=== PATIENT | female | born 1995 | race African-American/Black ===

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

== ENCOUNTER 2018-02-25 20:51 | Emergency (ER) | payer OTHER ==
--- NOTE | 2018-02-25 21:00 | PDOC ---
Rapid Medical Evaluation Time Seen by Provider: 02/25/18 20:57 Medical Evaluation: Allergies Allergy/AdvReac Type Severity Reaction Status Date / Time Sulfa (Sulfonamide Allergy Intermediate PIGMENT Verified 10/04/16 21:51 Antibiotics) CHANGES. 02/25/18 20:58 The patient presents with a chief complaint of: lower abd cramping w/ intermittent vag bleeding x 2 days, had menses 1 week ago I have performed a brief in-person evaluation of this patient; Pertinent physical exam findings: vss, mid suprapubic tenderness I have ordered the following: ua, hcg, cbc, u cx The patient will proceed to the ED for further evaluation. Discharge Disposition - Diagnosis Vagina bleeding - Referrals Referrals: Mc Calderon MD [Primary Care Provider] - - Patient Instructions - Post Discharge Activity
[2018-02-25 21:04] VITALS: BP 129/82; PULSE 87; TEMP 97.9; BMI 23.5
[2018-02-25 21:20] LABS: BASO % 0.4 % (0-2.0); EOS % 1.7 % (0-4.5); HEMATOCRIT 40.2 % (32.4-45.2); HEMOGLOBIN 13.8 GM/dL (10.7-15.3); LYMPH % 57.5 % (8-40); MCH 30.7 pg (25.7-33.7); MCHC 34.5 g/dl (32.0-36.0); MEAN CELL VOLUME 89.1 fl (80-96); MEAN PLT VOLUME 7.8 fl (7.5-11.1); MONO % 7.6 % (3.8-10.2); NEUT % 32.8 % (42.8-82.8); PLATELET COUNT 277 K/MM3 (134-434); RBC 4.51 M/mm3 (3.60-5.2); RDW 12.5 % (11.6-15.6); WHITE BLOOD COUNT 6.1 K/mm3 (4.0-10.0)
--- NOTE | 2018-02-25 21:33 | PDOC ---
Attending Attestation - Resident Resident Name: Elyssa Kimball - ED Attending Attestation I have performed the following: I have examined & evaluated the patient, The case was reviewed & discussed with the resident, I agree w/resident's findings & plan - Medical Decision Making 02/25/18 22:36 Pt states that she has hematuria vs vag bleeding vs blood in her stool. She saw blood in the toilet bowl and when she wiped. She has minimal discomfort with urination. She states that she is on a new control "Lutera" Pt has normal labs and normal exam. She has hematuria. She has no blood in her stool. She has no UTI. Pt has ketones in her urine, and she admits that she often doesn't eat because she doesn't feel hungry and that she doesn't drink a lot of fluid. Pt was encouraged to eat and drink more. 02/25/18 22:39 Pt is not . She will follow with her RAILROAD SHOP INSPECTOR. Pt is stable for discharge 02/25/18 22:40 Pt came to the ER likely because her maternal aunt just after a jones with endometrial cancer. Pt and mom are anxious. <Leslie Henderson - Last Filed: 02/25/18 22:40> - HPI HPI: 02/25/18 23:08 The patient is a 22 year old female , with no significant PMH, who presents to the emergency department with vaginal bleeding and abdominal cramps that began last night . The patient states she saw drops of blood in her stool and urine today with associated symptoms of dysuria and constipation. She reports her last menstrual period ended 3 days ago and had an 3 months ago. She is currently on control. The patient denies discharge, itching, and odor denies chest pain, shortness of breath, headache and dizziness.Denies fever, chills, nausea, vomit, diarrhea. Denies dysuria, frequency, urgency and hematuria. Allergies: NKA Past surgical history: Social history: No reported PCP: None reported Documentation prepared by Reed Tang, acting as medical case manager for Leslie Henderson MD. - Physicial Exam PE: 02/25/18 23:09 GENERAL: The patient is in no acute distress. LUNGS: Breath sounds equal, clear to auscultation bilaterally. No wheezes, and no crackles. HEART:Regular rate and rhythm, normal S1 and S2 without murmur, rub or gallop. ABDOMEN: Soft, nontender, normoactive bowel sounds. No guarding, no rebound. No masses palpable. EXTREMITIES: Normal range of motion, no edema. No clubbing or cyanosis. No erythema, or tenderness. NEUROLOGICAL: Cranial nerves II through XII grossly intact. Normal speech. No focal neurological deficits. MUSCULOSKELETAL: Back non-tender to palpation, no CVA tenderness SKIN: Warm, Dry, normal turgor, no rashes or lesions noted. <Reed Tang - Last Filed: 02/25/18 23:09>
[2018-02-25 21:48] LABS: ALK PHOS 48 U/L (45-117); ANION GAP 6 MMOL/L (8-16); BILIRUBIN,TOTAL 0.5 mg/dL (0.2-1); BLOOD UREA NITROGEN 9 mg/dL (7-18); CALCIUM 8.9 mg/dL (8.5-10.1); CHLORIDE 108 mmol/L (98-107); CO2 25 mmol/L (21-32); CREATININE 0.8 mg/dL (0.55-1.3); GLUCOSE,RANDOM 78 mg/dL (74-106); POTASSIUM 3.5 mmol/L (3.5-5.1); SGOT/AST 17 U/L (15-37); SGPT/ALT 21 U/L (13-61); SODIUM 139 mmol/L (136-145); TOT PROT 7.4 g/dl (6.4-8.2)
[2018-02-25 22:03] LABS: URINE APPEARANCE SLCLOUDY; URINE BILIRUBIN NEGATIVE (<2.0 mg/dL); URINE COLOR YELLOW; URINE GLUCOSE (UA) NEGATIVE (NEGATIVE); URINE KETONE 2+ (NEGATIVE); URINE LEUK ESTERASE NEGATIVE (NEGATIVE); URINE NITRITE NEGATIVE (NEGATIVE); URINE PROTEIN 2+ (NEGATIVE); URINE UROBILINOGEN 4.0 E.U/dl mg/dL (0.2-1.0)
[2018-02-25 22:05] LABS: HCG,QUALITATIVE URINE Negative
[2018-02-25 22:19] LABS: EPI CELLS RARE /HPF (FEW); URINE BACTERIA RARE /hpf (NONE SEEN); URINE MUCUS MODERATE
--- NOTE | 2018-02-25 22:28 | PDOC ---
History of Present Illness - General Chief Complaint: Hematuria Stated Complaint: BLOOD IN URINE, CRAMPING Time Seen by Provider: 02/25/18 20:57 History Source: Patient Exam Limitations: No Limitations Past History - Past Medical History Allergies/Adverse Reactions: Allergies Allergy/AdvReac Type Severity Reaction Status Date / Time Sulfa (Sulfonamide Allergy Intermediate PIGMENT Verified 02/25/18 21:05 Antibiotics) CHANGES. Home Medications: Ambulatory Orders No Home Medications 0 dose .ROUTE UTDICT 04/19/12 COPD: No - Immunization History Immunization Up to Date: Yes - Suicide/Smoking/Psychosocial Hx Smoking Status: No Smoking History: Never smoked Have you smoked in the past 12 months: No Number of Cigarettes Smoked Daily: 0 Information on smoking cessation initiated: No Hx Alcohol Use: No Drug/Substance Use Hx: No *Physical Exam - Vital Signs Last Vital Signs Temp Pulse Resp BP Pulse Ox 97.9 F 87 18 129/82 100 02/25/18 20:58 02/25/18 20:58 02/25/18 20:58 02/25/18 20:58 02/25/18 20:58 Moderate Sedation - Procedure Monitoring Vital Signs: Procedure Monitoring Vital Signs Temperature 97.9 F 02/25/18 20:58 Pulse Rate 87 02/25/18 20:58 Respiratory Rate 18 02/25/18 20:58 Blood Pressure 129/82 02/25/18 20:58 O2 Sat by Pulse Oximetry (%) 100 02/25/18 20:58 ED Treatment Course - LABORATORY CBC & Chemistry Diagram: 02/25/18 21:05 02/25/18 21:05 - ADDITIONAL ORDERS Additional order review: Laboratory Results 02/25/18 02/25/18 02/25/18 22:11 21:48 21:05 Sodium 139 Potassium 3.5 Chloride 108 H Carbon Dioxide 25 Anion Gap 6 L BUN 9 Creatinine 0.8 Creat Clearance w eGFR > 60 Random Glucose 78 Calcium 8.9 Total Bilirubin 0.5 AST 17 ALT 21 Alkaline Phosphatase 48 Total Protein 7.4 Albumin 4.0 Urine Color Yellow Urine Appearance Slcloudy Urine pH 6.0 Ur Specific [place] 1.026 Urine Protein 2+ H Urine Glucose (UA) Negative Urine Ketones 2+ H Urine Blood 3+ H Urine Nitrite Negative Urine Bilirubin Negative Urine Urobilinogen 4.0 e.u/dl H Ur Leukocyte Esterase Negative Urine WBC (Auto) 9 Urine RBC (Auto) 576 Ur Epithelial Cells Rare Urine Bacteria Rare Urine Mucus Moderate Urine HCG, Qual Negative Stool Occult Blood Negative 02/25/18 21:05 RBC 4.51 MCV 89.1 MCHC 34.5 RDW 12.5 MPV 7.8 Neutrophils % 32.8 L D Lymphocytes % 57.5 H D Monocytes % 7.6 Eosinophils % 1.7 Basophils % 0.4 Medical Decision Making - Medical Decision Making Pt was seen at bedside, also will be seen by attending Dr. Henderson. Pt presenting with complaints of vaginal bleeding and blood mixed into the urine and stool for the PE showed [] Considering [vs vs] Ordered work-up including [labs] and [imaging]. Provided [interventions/meds] for improvement of [pain/symptom control]. Will continue to reassess pt and monitor for symptomatic improvement. 02/25/18 22:21 Urine +blood, but negative leuk esterase, rare bacteria, likely from vaginal bleeding. 02/25/18 22:28 *DC/Admit/Observation/Transfer Diagnosis at time of Disposition: Vaginal bleeding - Discharge Dispostion Disposition: HOME Condition at time of disposition: Good Decision to Admit order: No - Referrals Referrals: Mc Calderon MD [Primary Care Provider] - Ton Vargas MD [Staff Physician] - - Patient Instructions Printed Discharge Instructions: DI for Vaginal Bleeding Additional Instructions: You were seen in the ER today for vaginal bleeding. The results of your labs and imaging today showed no infection and that you are not . Please follow-up with your primary care doctor and ob-international marketing coordinator doctor within 1-2 days to discuss your visit and make sure your symptoms have improved. Please return to the ER if you have any worsening pain, worsening vaginal bleeding (soaking through 1-2 heavy pads per hour), development of fevers or chills, loss of consciousness, inability to tolerate food or fluids, or any other concerns. - Post Discharge Activity
== END 2018-02-25 22:45 | disposition home or self-care (01) ==
LOC: JER 20:51
DX: N93.8 Other specified abnormal uterine and vaginal bleeding (principal)
CPT/HCPCS: 36415; 80053; 81003; 81015; 82272; 84703; 85025; 87086; 99282-25

== ENCOUNTER 2019-12-05 05:03 | Day surgery (SDC) | payer OTHER ==
[2019-12-04 12:00] VITALS: BMI 31.8
--- OUTSIDE RECORDS SUMMARY | 2019-12-05 05:07 | XMS ---
:1995 Author Organization [facility] Support Name Relationship Address Phone GRETA, STUDENT Unavailable Unavailable Unavailable GRETA Unavailable Unavailable Unavailable DEVEN STACY MOTHER [address] [phone] [place] [address] Rachelle Mendez Unavailable 7 [facility] [place] [address] Re-disclosure Warning The records that you are about to access may contain information from federally- assisted alcohol or drug abuse programs. If such information is present, then the following federally mandated warning applies: This information has been disclosed to you from records protected by federal confidentiality rules (42 CFR part 2). The federal rules prohibit you from making any further disclosure of this information unless further disclosure is expressly permitted by the written consent of the person to whom it pertains or as otherwise permitted by 42 CFR part 2. A general authorization for the release of medical or other information is NOT sufficient for this purpose. The Federal rules restrict any use of the information to criminally investigate or prosecute any alcohol or drug abuse patient.The records that you are about to access may contain highly sensitive health information, the redisclosure of which is protected by Article 27-F of the [facility] Public Health law. If you continue you may haveaccess to information: Regarding HIV / AIDS; Provided by facilities licensed or operated by the [facility] Office of Mental Health; or Provided by the [facility] Office for People With Developmental Disabilities. If such information is present, then the following [facility] mandated warning applies: This information has been disclosed to you from confidential records which are protected by state law. State law prohibits you from making any further disclosure of this information without the specific written consent of the person to whom it pertains, or as otherwise permitted by law. Any unauthorized further disclosure in violation of state law may result in a fine or fdc sentence or both. A general authorization for the release of medical or other information is NOT sufficient authorization for further disclosure. Allergies and Adverse Reactions Type Description Substance Reaction Status Data Source(s ) sulfur sulfur sulfur Unknown Active eCW2 ([facility]) sulfur sulfur sulfur Unknown Active eCW2 ([facility]) sulfur sulfur sulfur Unknown Active eCW2 ([facility]) Drug allergy Sulfur Drug allergy rash Active eCW3 ([facility]) Encounters Encounter Providers Location Date Indications Data Source(s ) (EOB) Established [facility] 01/03/2019 eCW 3 ([facility] A28 12:00:00 AM [facility]) 01/03/2019 12:00:00 AM EDT Outpatient [facility] 11/22/2018 eCW3 ([facility] 12:00:00 [facility]) 11/22/2018 12:00:00 AM EDT Outpatient [facility] 11/15/2018 eCW3 ([facility] 12:00:00 AM [facility]) 11/15/2018 12:00:00 AM EDT Outpatient [facility] 11/11/2018 eCW3 ([facility] 12:00:00 AM [facility]) 11/11/2018 12:00:00 AM EDT Outpatient [facility] 11/08/2018 eCW3 ([facility] 12:00:00 [facility]) 11/08/2018 12:00:00 AM EDT [facility] 11[facility]04[facility] ( [facility] [place] [facility] 12:00:00 AM [facility] EDT [facility]) [facility] 12/13/2017 eCW2 ( [facility] [place] [facility] 12:00:00 AM [facility] - [place] EDT [facility]) [facility] 12/11/2017 eCW2 ( [facility] [place] [facility] 12:00:00 AM Pa[facility] - [place] EDT [facility]) [facility] 12/02/2017 eCW2 ( [facility] [place] [facility] 12:00:00 AM Pa[facility] - [place] EDT [facility]) [facility] 12/01/2017 eCW2 ( [facility] [place] [facility] 12:00:00 AM Pa[facility] - [place] EDT [facility]) [facility] 10/20/2017 eCW2 ( [facility] [place] [facility] 12:00:00 AM Pa[facility] - [place] EDT [facility]) [facility] 07/08/2017 eCW2 ( [facility] [place] [facility] 12:00:00 AM Paren [facility] - [place] EDT [facility]) [facility] 06/10/2017 eCW2 ( [facility] [place] [facility] 12:00:00 AM Pa[facility] - [place] EDT [facility]) [facility] 12/20/2014 eCW2 ( [facility] [place] [facility] 12:00:00 AM Parenth ood - [place] EDT [facility]) Immunizations Vaccine Date Status Description Data Source(s) Azithromycin 500mg #1 12/11/2017 completed eCW2 ( [facility] (Non 340B) 02:17:00 PM EDT [facility]) No Known Immunizations completed eCW2 ([facility]) No Known Immunizations completed eCW2 ([facility]) Medications Medication Brand Start Product Dose Route Administrative Pharm[facility] Indications Reaction Description Data Name Date Form Instructions Instructions Source(s) 2 ML Ketoro 12/11/ active 0.5 ml one eCW 2 Ketorolac lac 2018 time (Planned Tromethamin Tromet 12:00: Pare nthood e 30 MG/ML hamine 00 AM - [facility] Cart[facility] 60 EDT [facility] Ketorolac MG/2ML Incorpor at Tromethamin ed) e 60 MG/2ML Lutera Lutera 12/11/ active 1 tablet eCW 2 0.1-20 0.1-20 2017 ([facility]anned MG-MCG MG-MCG 12:00: Parenthoo d 00 AM - [facility] EDT [facility]) Cyred Cyred 12/11/ active 1 tablet eCW2 0.15-30 0.15-3 2017 ([facility]anned MG-MCG 0 12:00: Parenthood MG-MCG 00 AM - [facility] EDT [facility]) Naproxen Napros 12/11/ active 1 tablet e CW2 500 MG Oral yn 500 2018 once (Plann ed Tablet MG 12:00: Parenthood [Naprosyn] 00 AM - [facility] Naprosyn EDT [facility] 500 MG Incorporat ed) Ondansetron Ondans 12/11/ active as dire cted eCW2 HCl 4 etron 2017 ([facility]anned MG/2ML HCl 4 12:00: Parenthood MG/2ML 00 AM - [facility] EDT [facility]) Microgestin Microg 12/20/ suspend 1 tabl et eCW2 FE 1.08/04 estin 2014 ed ([facility]anned 1.5-30 FE 12:00: Parenthood MG-MCG 1.530 00 AM - [facility] 1.5-30 EDT [facility] MG-MCG Incorporat ed) Microgestin Microg 12/20/ active 1 table t eCW2 FE .08/04 estin 2014 ([facility]anned 1.5-30 FE 12:00: [facility] MG-MCG 1.530 00 AM - [facility] 1.5-30 EDT [facility] MG-MCG Incorporat ed) Microgestin Microg 12/20/ suspend 1 tabl et eCW2 FE .08/04 estin 2014 ed ([facility]anned 1.5-30 FE 12:00: Parenthood MG-MCG 1.530 00 AM - [facility] 1.5-30 EDT [facility] MG-MCG Incorporat ed) Ibuprofen Ibupro active 1 tablet eC W2 800 MG Oral fen (Planned Tablet 800 MG [facility]) Iron UNK active Iron eCW3 (Ferrous (Ferrous ([facility] Sulfate) Sulfate) [facility]) Mifepriston Mifepr suspend 1 tablet eCW2 e 200 MG istone ed (Planned Oral Tablet 200 MG Parent meridian - [facility] [place] [facility]) UNK active eCW3 Vitamins Vitamins ([facility]) Azithromyci Azithr active 1 Tablet eCW2 n 500 MG omycin (Planned Oral Tablet 500 MG Parent [facility] - [facility] [place] [facility]) Misoprostol UNK suspend 4 tablets eCW2 4 tabs 200 ed (Planned MCG [facility]) UNK active eCW3 Vitamins Vitamins ([facility]) Lutera Lutera suspend 1 tablet eCW2 0.1-20 0.1-20 ed (Planned MG-MCG MG-MCG [facility]) UNK active eCW3 Vitamins Vitamins ([facility]) Lutera Lutera suspend 1 tablet eCW2 0.1-20 0.1-20 ed (Planned MG-MCG MG-MCG [facility] [place] [facility]) Azithromyci Azithr suspend as direc sandra eCW2 n 500 MG omycin ed ([facility]anned Oral Tablet 500 [facility] Azithromyci Azithr suspend as direc sandra eCW2 n 500 MG omycin ed (Planned 500 MG [facility] [place] [facility]) Misoprostol UNK active 4 tablets e CW2 4 tabs 200 (Planned MCG [facility] [place] [facility]) Iron UNK active Iron eCW3 (Ferrous (Ferrous ([facility] Sulfate) Sulfate) [facility]) Iron UNK active Iron eCW3 (Ferrous (Ferrous ([facility] Sulfate) Sulfate) [facility]) Azithromyci Azithr active as direct ed eCW2 n 500 MG omycin (Planned Oral Tablet 500 MG [facility] Iron UNK active Iron eCW3 (Ferrous (Ferrous ([facility] Sulfate) Sulfate) [facility]) Misoprostol UNK suspend 4 tablets eCW2 4 tabs 200 ed (Planned MCG [facility]) Ondansetron Zofran suspend 1 tablet s eCW2 4 MG Oral 4 MG ed (Planned Tablet Parenthood [Zofran] - [place] Zofran 4 MG [facility]) Mifepriston UNK active 1 tablet eC W2 e 200 MG ([facility] [place] [facility]) Lutera Lutera active 1 tablet eCW2 0.1-20 0.1-20 (Planned MG-MCG MG-MCG [facility] - [facility] [place] [facility]) Ondansetron Zofran active 1 tablets eCW2 4 MG Oral 4 MG (Planned Tablet [facility] [Zofran] - [facility] Zofran 4 MG [facility]) Ondansetron Zofran suspend 1 tablet s eCW2 4 MG Oral 4 MG ed (Planned Tablet Parenthood [Zofran] - [facility] Zofran 4 MG [facility]) Cyred Cyred active 1 tablet eCW2 0.15-30 0.15-3 (Planned MG-MCG 0 Parenthood MG-MCG - [facility]) UNK active eCW3 Vitamins Vitamins ([facility]) Ibuprofen Ibupro suspend 1 tablet e CW2 800 MG Oral fen ed (Planned Tablet 800 MG [facility]) Lutera Lutera active 1 tablet eCW2 0.1-20 0.1-20 (Planned MG-MCG MG-MCG [facility]) Cyred Cyred suspend 1 tablet eCW2 0.15-30 0.15-3 ed (Planned MG-MCG 0 Parenthood MG-MCG - [facility]) Cyred Cyred active 1 tablet eCW2 0.15-30 0.15-3 (Planned MG-MCG 0 Parenthood MG-MCG - [facility]) UNK active eCW3 Vitamins Vitamins ([facility]) Cyred Cyred suspend 1 tablet eCW2 0.15-30 0.15-3 ed (Planned MG-MCG 0 Parenthood MG-MCG - [facility]) Ibuprofen Ibupro suspend 1 tablet e CW2 800 MG Oral fen ed (Planned Tablet 800 MG [facility]) Mifepriston UNK suspend 1 tablet e CW2 e 200 MG ed ([facility]) Iron UNK active Iron eCW3 (Ferrous (Ferrous ([facility] Sulfate) Sulfate) [facility]) Insurance Providers Payer name Policy type Policy ID Covered Covered alliance party's Policy P robin / Coverage alliance party ID relationship to M[employer]za Inf ormation type mendoza [facility] [id number] HEALTH NON CAP Problems, Conditions, and Diagnoses Code Display Name Description Problem Type Effective Dates Data Source(s) Unknown Problems Unknown Problems Problem eC W2 ([facility]) Unknown Problems Unknown Problems Problem eC W2 ([facility]) Unknown Problems Unknown Problems Problem eC W2 ([facility]) Surgeries/Procedures Procedure Description Date Indications Data Source(s) Test 11/04/2018 eCW2 ([facility] 12:00:00 AM EDT [facility]) Surgical 12/11/2017 eCW2 (Plan isidoro 16-17.6 weeks 12:00:00 AM EDT [facility]) Cyred (NON 340B) 12/11/2017 eCW2 ([facility] ed 12:00:00 AM EDT [facility]) GONORRHEA, CADE 12/11/2017 eCW2 ([facility]anned 12:00:00 AM EDT [facility]) CHLAMYDIA, CADE 12/11/2017 eCW2 ([facility]anned 12:00:00 AM EDT [facility]) Prescription drug, oral, 12/11/2017 eCW 2 (Planned non chemotherapeutic, 12:00:00 AM EDT Par enthood - [facility] nos [facility]) HEMOGLOBIN 12/11/2017 eCW2 (Planned 12:00:00 AM EDT [facility]) CHLAMYDIA, CADE 12/01/2017 eCW2 ([facility]anned 12:00:00 AM EDT [facility]) HEMOGLOBIN 12/01/2017 eCW2 (Planned 12:00:00 AM EDT [facility]) GONORRHEA, CADE 12/01/2017 eCW2 (Planned 12:00:00 AM EDT [facility]) Test 12/01/2017 eCW2 ([facility]anned 12:00:00 AM EDT [facility]) US transvaginal, 12/01/2017 eCW2 (Plann ed uterus 12:00:00 AM EDT Pa[facility] d - [facility]) Results ID Date Data Source [id number] 12/01/2019 12:50:00 PM EDT [facility] Name Value Range Interpretation Description Data Sup porting Code Source(s) Document(s ) SARS [facility] coronavirus 2 RNA This lab was ordered by [facility] and reported by [facility]. ID Date Data Source [id number] 10/09/2019 12:00:00 AM EDT [facility] Name Value Range Interpretation Code Description Data Kelsi rce(s) Supporting Document(s ) 2018-nCoV [facility] RNA XXX CADE+probe- Imp This lab was ordered by [facility] [employer] and reported by [employer] ID Date Data Source [id number] 09/24/2019 12:00:00 AM EDT [facility] Name Value Range Interpretation Code Description Data Kelsi rce(s) Supporting Document(s ) 2018-nCoV [facility] RNA XXX CADE+probe- Imp This lab was ordered by [facility] [employer] and reported by [employer] ID Date Data Source [id number] 09/02/2019 12:00:00 AM EDT [facility] Name Value Range Interpretation Code Description Data Kelsi rce(s) Supporting Document(s ) 2018-nCoV [facility] RNA XXX CADE+probe- Imp This lab was ordered by [facility] [employer] and reported by [employer] ID Date Data Source [id number] 06/26/2019 02:30:00 PM EDT [facility] Name Value Range Interpretation Description Data Sup porting Code Source(s) Document(s ) SARS [facility] coronavirus 2 RNA This lab was ordered by Victoriano roman/Jarek and reported by [facility]. ID Date Data Source US transvaginal, 12/03/2017 07:56:03 AM eCW2 (Plann ed Parenthood - uterus ([id number] EDT [facility]) Name Value Range Interpretation Description Data Sup porting Code Source(s) Document(s ) Laboratory US eCW2 (Planned studies (set) transvaginal, [facility] - [facility] uterus ([id number]) [facility]) Procedure Social History Code Duration Value Status Description Data Source(s ) Smoking 03/28/2019 Never Smoker completed Never Smoker eCW3 ([facility] 12:00:00 AM [facility]) Smoking 03/28/2019 Never Smoker completed Never Smoker eCW3 ([facility] 12:00:00 AM [facility]) Smoking 03/28/2019 Never Smoker completed Never Smoker eCW3 ([facility] 12:00:00 AM [facility]) Smoking 03/28/2019 Never Smoker completed Never Smoker eCW3 ([facility] 12:00:00 AM [facility]) Smoking 03/28/2019 Never Smoker completed Never Smoker eCW3 ([facility] 12:00:00 AM [facility]) Never Smoker completed Never Smoker eCW3 ([facility]) Never Smoker completed Never Smoker eCW3 ([facility] on [facility]) Never Smoker completed Never Smoker eCW3 ([facility] on [facility]) Never Smoker completed Never Smoker eCW3 ([facility]) Never Smoker completed Never Smoker eCW3 ([facility]) Smoking Never Smoker completed Never Smoker eCW2 (Plan is[facility]) Smoking Never Smoker completed Never Smoker eCW2 ([facility]) Smoking Unknown if ever completed Unknown if ever eCW2 (Planned smoked smoked [facility]) Vital Signs ID Date Data Source UNK Name Value Range Interpretation Code Description Data Source(s) Diastolic blood 61 mm[Hg] 61 mm[Hg] eCW3 ([facility]) Systolic blood 96 mm[Hg] 96 mm[Hg] eCW3 ([facility]) Body temperature 98.5 [degF] 98.5 [degF] eCW3 ( [facility]) Heart rate 20 /min 20 /min eCW3 ([facility]) Body mass index 27.346 kg/m2 27.346 kg/m2 eCW3 ([facility] [place] (BMI) [Ratio] [facility]) Body weight 172 [lb_av] 172 [lb_av] eCW3 ([facility]) Body height 66.5 [in_i] 66.5 [in_i] eCW3 ([facility]) Diastolic blood 68 mm[Hg] 68 mm[Hg] eCW3 ([facility]) Systolic blood 103 mm[Hg] 103 mm[Hg] eCW3 ([facility]) Body temperature 98.4 [degF] 98.4 [degF] eCW3 ( [facility]) Heart rate 20 /min 20 /min eCW3 ([facility]) Body mass index 25.438 kg/m2 25.438 kg/m2 eCW3 ([facility] [place] (BMI) [Ratio] [facility]) Body weight 160 [lb_av] 160 [lb_av] eCW3 ([facility]) Body height 66.5 [in_i] 66.5 [in_i] eCW3 ([facility]) Diastolic blood 69 mm[Hg] 69 mm[Hg] eCW2 ([facility] nned pressure [facility]) Systolic blood 122 mm[Hg] 122 mm[Hg] eCW2 (Plan isidoro pressure [facility]) Body mass index 24.17 kg/m2 24.17 kg/m2 eCW2 (P [facility]anned (BMI) [Ratio] [facility]) Body weight 159 [lb_av] 159 [lb_av] eCW2 ([facility] ed Measured [facility]) Body height 68 [in_us] 68 [in_us] eCW2 ([facility]) Diastolic blood 66 mm[Hg] 66 mm[Hg] eCW2 (Trena nned pressure [facility]) Systolic blood 96 mm[Hg] 96 mm[Hg] eCW2 (Plan isidoro pressure [facility]) Body mass index 26.15 kg/m2 26.15 kg/m2 eCW2 (P lanned (BMI) [Ratio] [facility]) Body weight 172 [lb_av] 172 [lb_av] eCW2 (Plann ed Measured [facility]) Body height 68 [in_us] 68 [in_us] eCW2 ([facility]) Diastolic blood 75 mm[Hg] 75 mm[Hg] eCW2 (Trena nned pressure [facility]) Systolic blood 112 mm[Hg] 112 mm[Hg] eCW2 (Plan isidoro pressure [facility]) Body mass index 26.00 kg/m2 26.00 kg/m2 eCW2 (P lanned (BMI) [Ratio] [facility] - [employer] [facility]) Body weight 171 [lb_av] 171 [lb_av] eCW2 (Plann ed Measured [facility] - [employer] [facility]) Body height 68 [in_us] 68 [in_us] eCW2 ([facility] [employer] [facility]) Patient Treatment Plan of Care Planned Activity Planned Date Details Description Data Source (s) Ondansetron HCl 4 MG/2ML 12/11/2017 12:00:00 eCW2 (Planned AM EDT [facility]) Naproxen 500 MG Oral 12/11/2017 12:00:00 eCW2 (Planned Tablet [Naprosyn] AM EDT [facility]) 2 ML Ketorolac 12/11/2017 12:00:00 eCW2 ( Planned Tromethamine 30 MG/ML AM EDT Parent zavaleta - [facility]) Cyred 0.15-30 MG-MCG 12/11/2017 12:00:00 eCW2 (Planned AM EDT [facility]) Lutera 0.1-20 MG-MCG 12/11/2017 12:00:00 eCW2 (Planned AM EDT [facility]) Lutera 0.1-20 MG-MCG eCW2 (P lanned [facility]) Cyred 0.15-30 MG-MCG eCW2 (P lanned [facility]) Azithromycin 500 MG Oral eCW 2 (Planned Tablet [facility])
[2019-12-05 10:58] VITALS: TEMP 97.7
[2019-12-05 11:44] VITALS: BP 101/51; PULSE 58
--- NOTE | 2019-12-06 17:38 | PATH ---
Surgical Pathology Report Patient Name: ASHLY EDWARDS [facility]. Rec. #: [id number] /Age/Gender: 1995 (Age: 24) / F Account: [id number] Location: ASU-ENDOSCOPY Taken: 12/05/2019 Received: 12/05/2019 Reported: 12/06/2019 Physicians: Cash Hayes M.D. Specimen(s) Received RECTAL POLYP Clinical History Rectal bleeding Postoperative diagnosis: Same as preop Final Diagnosis RECTAL POLYP, POLYPECTOMY: HYPERPLASTIC POLYP. Electronically Signed Marina Rice M.D. Gross Description Received in formalin, labeled "biopsy rectal polyp" are 2 bateman, irregular portions of soft tissue measuring 0.2 and 0.3 cm. in greatest dimension. The specimens are submitted in toto in one cassette. 12/05/2019 [facility]12/05/2019
== END 2019-12-05 12:27 | disposition home or self-care (01) ==
LOC: JASU-ENDO 05:03
PROVIDERS: ATTEND Internal Medicine Gastroenterology
PROC: 0DBP8ZX Excision of Rectum, Via Natural or Artificial Opening Endoscopic, Diagnostic (ICD-10-PCS; principal; 2019-12-05 11:00)
DX: K62.5 Hemorrhage of anus and rectum (principal); K64.4 Residual hemorrhoidal skin tags; K64.9 Unspecified hemorrhoids
CPT/HCPCS: 81025; 88305-TC

== ENCOUNTER 2024-08-02 16:50 | Emergency (ER) | payer OTHER ==
[2024-08-02 17:06] VITALS: BP 96/53; PULSE 63; RESP 20; TEMP 98.9; BMI 27.8
[2024-08-02] MEDS ORDERED: IBUPROFEN 600 MG TABLET (FP) PO ONE (17:32)
[2024-08-02] MEDS: IBUPROFEN 600 MG TABLET (FP) PO ONE (17:37)
== END 2024-08-02 17:38 | disposition home or self-care (01) ==
LOC: JERFT 16:50
DX: K03.81 Cracked tooth (principal)
CPT/HCPCS: 99283-25

== ENCOUNTER 2024-10-07 15:33 | Emergency (ER) | payer OTHER ==
[2024-10-07 15:39] VITALS: BP 128/62; PULSE 88; RESP 18; TEMP 99.1; BMI 27.2
[2024-10-07] MEDS ORDERED: IBUPROFEN 600 MG TABLET (FP) PO ONE (18:06)
[2024-10-07] MEDS: IBUPROFEN 600 MG TABLET (FP) PO ONE (18:08)
[2024-10-07 18:30] LABS: HIV INTERPRETATION NEGATIVE (NEGATIVE)
[2024-10-07 18:31] LABS: HCV DIAGNOSTIC IN-HOUSE W/RFLX NON-REACTIVE (NONREACTIVE)
== END 2024-10-07 18:24 | disposition home or self-care (01) ==
LOC: JER 15:33 → JERFT 15:33
DX: S92.514A Nondisplaced fracture of proximal phalanx of right lesser toe(s), initial encounter for closed fracture (principal); W01.0XXA Fall on same level from slipping, tripping and stumbling without subsequent striking against object, initial encounter; Y93.02 Activity, running
CPT/HCPCS: 36415; 73630-TC-RT-FY; 73660-TC-FY; 86803; 87389; 99284-25